=== PATIENT | female | born 1975 | race Caucasian/White ===

== ENCOUNTER 2025-08-24 13:04 | Emergency (ER) | payer OTHER ==
[~2025-08-24] VITALS: Ht 152.4 cm; Wt 54.4 kg
[2025-08-24 13:43] LABS: BASO # 0.1 10^3/uL (0.0-0.2); BASO % 1.2 % (0.0-1.0); EOS # 0.2 10^3/uL (0.0-0.5); EOS % 2.3 % (0.0-3.0); LYMPH # 2.4 10^3/uL (1.5-5.0); LYMPH % 29.1 % (24.0-44.0); MONO # 0.6 10^3/uL (0.0-0.8); MONO % 7.9 % (2.0-8.0); NEUTROPHILS # 4.8 10^3/uL (1.5-8.5); NEUTROPHILS % 59.0 % (36.0-66.0); PLATELET COUNT, AUTOMATED 339 10^3/uL (150-450)
[2025-08-24 14:17] LABS: CALCIUM LEVEL 8.8 MG/DL (8.5-10.1); CARBON DIOXIDE LEVEL 25.0 MMOL/L (20-31); CHLORIDE LEVEL 105.0 MMOL/L (98-107); CK-MB VALUE MASS 2.5 NG/ML (<3.6); CREATININE FOR GFR 1.04 MG/DL (0.55-1.30); GLOMERULAR FILTRATION RATE 65.5 (>51); POTASSIUM SERUM 4.3 MMOL/L (3.5-5.1); SODIUM LEVEL 140.0 MMOL/L (136-145)
[2025-08-24 14:19] LABS: CPK CREATINE PHOSPHOKINASE 216.0 U/L (34-145); MB/CK RELATIVE INDEX 1.15 (< OR =4)
[2025-08-24] MEDS: ACETAMINOPHEN *IV* 1,000 MG in IV 1 EA IV ONE (14:50)
[2025-08-24] MEDS ORDERED: ISOVUE-370 76% 100 ML VIAL As Ordered ONE (15:31)
[2025-08-24 15:34] LABS: CK-MB VALUE MASS 1.3 NG/ML (<3.6)
[2025-08-24 15:37] LABS: CPK CREATINE PHOSPHOKINASE 97.0 U/L (34-145); MB/CK RELATIVE INDEX 1.34 (< OR =4)
[2025-08-24] MEDS: PERCOCET 5MG/325MG TAB PO ONE (15:44)
[2025-08-24 17:04] VITALS: BP 142/68; TEMP 98
[2025-08-24 17:19] VITALS: O2SAT 99
== END 2025-08-24 17:28 | disposition home or self-care (01) ==
LOC: M ED 13:04
DX: R07.9 Chest pain, unspecified (principal); I25.84 Coronary atherosclerosis due to calcified coronary lesion; I10 Essential (primary) hypertension; F17.290 Nicotine dependence, other tobacco product, uncomplicated; F12.10 Cannabis abuse, uncomplicated
CPT/HCPCS: 71045; 71275; 80048; 82550; 82553; 84484; 85025; 85379; 93005; 93041; 94760; 99285; J0134; Q9967